=== PATIENT | male | born 1960 | race Hispanic/Latino ===

== ENCOUNTER 2016-08-24 15:41 | Inpatient (IN) | payer OTHER ==
[2016-08-24] MEDS ORDERED: MILK OF MAGNESIA PO PRN (16:48)
[2016-08-24] MEDS ORDERED: ALUM-MAG HYDROX-SIMETH 200-200-20MG/5ML PO PRN (16:48)
[2016-08-24] MEDS ORDERED: DULCOLAX PR PRN (16:48)
[2016-08-24] MEDS ORDERED: SENOKOT PO PRN (16:48)
--- NOTE | 2016-08-24 17:12 | History and Physical Report ---
History of Present Illness Date: 08/24/16 Referring Facility: [facility] Date of admission: 08/24/16 15:41 Chief Complaint: right MCA CVA History of present illness: POST ADMISSION PHYSICIAN EVALUATION ONSET DATE: 08/22/2016 IMPAIRMENT GROUP CODE: 01.2 ETIOLOGIC DIAGNOSIS: right MCA CVA STATUS CHANGES SINCE PREADMISSION SCREENING: PAS has been reviewed. In comparison, pt is with improved left side strength; continues with intermittent headache, relieved by prn tramadol. Therapies to be initiated in the morning. Pt remains an appropriate candidate for IRU admission at this time. PREVIOUS FUNCTIONAL STATUS: Independent for ADLs, gait, transfers CURRENT FUNCTIONAL STATUS: per PAS, pt requires S/U for eating and UB dressing ; Tunde for grooming, bathing, LB dressing, and toileting; Tunde for bed/chair transfers; min/modA x2 20 feet with RW HPI 56 y.o. left handed male noted to have acute onset of left sided weakness attempting to go to the bathroom at home; resulted in patient falling. Pt also with associated headache. Pt was taken to [facility] by EMS; stroke work- up initiated; tPA given in ED. Initial CT Brain was negative; however, MRI Brain positive for partial right MCA CVA. Pt has continued with intermittent headaches, functional deficits with self cares and mobility. Pt is now admitted to IRU for aggressive therapies and ongoing medical management. Past History Past Medical History: GERD, stroke, other (hemorrhoids; colon polyps) Past Surgical History: Other (polypectomy) Social history: , lives with family, smoking. denies: alcohol abuse Family history: CAD, cancer. denies: stroke Medications and Allergies Allergies Allergy/AdvReac Type Severity Reaction Status Date / Time No Known Allergies Allergy Unverified 08/24/16 16:33 Active Meds: Active Medications Acetaminophen (Tylenol) 650 mg PO Q4H PRN PRN Reason: Pain MILD(1-3)/Fever >100.5/PHILIP Al Hydrox/Mg Hydrox/Simethicone (Alum-Mag Hydrox-Simeth [id number]/5ml) 30 ml PO Q4H PRN PRN Reason: Indigestion Aspirin (Aspirin) 325 mg PO QDAY HEIDE Atorvastatin Calcium (Lipitor) 40 mg PO QHS HEIDE Bisacodyl (Dulcolax) 10 mg MO QDAY PRN PRN Reason: Constipation unrelieved by MOM Calcium Carbonate/Glycine (Tums) 500 mg PO QDAY HEIDE Enoxaparin Sodium (Lovenox) 40 mg SUB-Q QDAY HEIDE Magnesium Hydroxide (Milk Of Magnesia) 30 ml PO Q4H PRN PRN Reason: Constipation Senna (Senokot) 8.6 mg PO Q12H PRN PRN Reason: Laxative Effect Tramadol HCl (Ultram) 100 mg PO Q6H PRN PRN Reason: Pain, Moderate (4-6) Review of Systems All systems: negative Constitutional: poor appetite Ears, nose, mouth and throat: headache Cardiovascular: no chest pain Respiratory: no cough Gastrointestinal: no nausea, no vomiting, no constipation Genitourinary Male: no dysuria Neurological: balance difficulties, gait dysfunction Exam - Constitutional General appearance: no acute distress, other (family present) - EENT Eyes: EOM intact ENT: hearing intact - Neck Neck: supple, normal ROM - Respiratory Respiratory effort: normal Respiratory: bilateral: CTA - Cardiovascular Rhythm: regular Heart Sounds: Present: S1 & S2 - Extremities Extremities: No edema - Gastrointestinal General gastrointestinal: Present: soft, non-tender, non-distended, normal bowel sounds - Integumentary Integumentary: Present: clear - Neurologic Neurologic: CNII-XII intact, moves all extremities (4/5 throughout), other ( sensation grossly intact) - Psychiatric Psychiatric: appropriate mood/affect, intact judgment & insight, memory intact, cooperative Assessment and Plan Assessment and plan: 56 y.o. left handed male with partial right MCA CVA, improving left sided weakness, gait dysfunction. The patient is currently medically stable, however , requires ongoing medical management. Pt is appropriate for inpatient rehabilitation admission and is thought to be able to tolerate at least 3 hours of therapy a day, 5 days a week including 1 hour of physical therapy, 1 hour of occupational therapy, and 1 hour of speech therapy. Patient is able to understand and follow basic directions and has attainable rehab goals. Potential barriers/complications include extension/recurrent CVA, falls, DVT, PE , depression, syncope. Plan 1. Rehabilitation- Pt will undergo multidisciplinary/integrative rehab PT/OT/ ELECTRICAL ASSEMBLER, Nursing. Areas to be addressed include, but are not limited to PT for mobility, strengthening, transfer training, ROM, endurance, stairs, balance; OT for ADLs, household tasks, adaptive equipment; ELECTRICAL ASSEMBLER for cognition and swallowing evaluations; Nursing for carryover of therapies, pain control, education, skin integrity, medication management, bowel/bladder management; Nutrition as needed ; multimedia services coordinator for discharge planning and equipment needs. Potential interventions include appropriate assistive device or adaptive equipment. Expected overall level of functional improvement by discharge is Marci for ADLs, gait, transfers. Pt will tentatively be discharged home with outpatient PT. Estimated length of stay is 7-10 days. 2. s/p CVA- continue ASA, statin; continue prn tramadol for intermittent headaches 3. gait dysfunction secondary to CVA- to address in PT 4. GERD- tums daily 5. DVT px- lovenox - Patient Problems (1) Acute right MCA stroke Current Visit: Yes Status: Acute (2) Hemiparesis affecting left side as late effect of cerebrovascular accident Current Visit: Yes Status: Acute (3) Abnormality of gait following cerebrovascular accident (CVA) Current Visit: Yes Status: Acute (4) GERD (gastroesophageal reflux disease) Current Visit: Yes Status: Acute Qualifiers: Esophagitis presence: without esophagitis Qualified Code(s): K21.9 - Gastro -esophageal reflux disease without esophagitis
[2016-08-24] MEDS: ULTRAM PO PRN ×2 (17:16→23:39)
[2016-08-24] MEDS: ZOFRAN PO PRN (18:54)
[2016-08-24] MEDS: TYLENOL PO PRN (22:33)
[2016-08-25 05:12] LABS: Basophils % (Auto) 0.7 % (0.0-1.8); Eosinophils % (Auto) 0.5 % (0.0-4.3); Hematocrit 36.2 % (35.5-45.6); Hemoglobin 12.3 gm/dl (11.8-15.2); Mean Corpuscular HGB Conc 34 % (32-34); Mean Corpuscular Hemoglobin 30 pg (28-32); Mean Corpuscular Volume 88 fl (84-94); Platelet Count 224 K/mm3 (140-440); Red Cell Distribution Width 13.1 % (13.2-15.2); White Blood Count 9.1 K/mm3 (4.5-11.0)
[2016-08-25 05:30] LABS: Alanine Aminotransferase 19 units/L (7-56); Albumin 3.9 g/dL (3.9-5); Albumin/Globulin Ratio 1.3 %; Alkaline Phosphatase 52 units/L (35-129); Anion Gap 20 mmol/L; BUN/Creatinine Ratio 23.33; Blood Urea Nitrogen 14 mg/dL (9-20); Calcium 8.5 mg/dL (8.4-10.2); Carbon Dioxide 22 mmol/L (22-30); Chloride 100.2 mmol/L (98-107); Glucose 99 mg/dL (75-100); Sodium 138 mmol/L (137-145); Total Protein 6.8 g/dL (6.3-8.2)
[2016-08-25] MEDS: ULTRAM PO PRN ×3 (09:12→21:17)
[2016-08-25] MEDS: TUMS PO SCH (09:12)
[2016-08-25] MEDS: ASPIRIN PO SCH (09:12)
[2016-08-25] MEDS: LOVENOX SUB-Q SCH (09:13)
[2016-08-25] MEDS: TYLENOL PO PRN ×2 (12:39→19:59)
[2016-08-25] MEDS: ZOFRAN PO PRN (12:40)
[2016-08-26] MEDS: ULTRAM PO PRN ×2 (04:21→10:37)
[2016-08-26] MEDS: TYLENOL PO PRN ×2 (08:00→19:54)
[2016-08-26] MEDS: LOVENOX SUB-Q SCH (08:47)
[2016-08-26] MEDS: ASPIRIN PO SCH (08:48)
[2016-08-26] MEDS: TUMS PO SCH (08:48)
[2016-08-27] MEDS: ULTRAM PO PRN (04:40)
[2016-08-27] MEDS: TYLENOL PO PRN (06:56)
[2016-08-27] MEDS: TUMS PO SCH (09:24)
[2016-08-27] MEDS: LOVENOX SUB-Q SCH (09:25)
[2016-08-27] MEDS: ASPIRIN PO SCH (09:25)
--- NOTE | 2016-08-27 10:23 | IRU Plan of Care ---
Interdisciplinary Plan of Care - IP IRU INTERDISCIPLINARY PLAN: [facility] Inpatient Rehab Unit Plan of Care IRU Interdisciplinary Care Plan Start: 08/24/16 16: 31 Freq: Admission then PRN Status: Active Document 08/27/16 09:53 DB (Rec: 08/27/16 09:59 DB [id number]) Interdisciplinary Problem List Interdisciplinary Problem List Interdisciplinary Problem List Impaired Bathing/Grooming Query Text:Answers will Trigger Problems Impaired Mobility and Outcomes on Worklist. Impaired Transfers Pain Management Knowledge Deficits Impaired Home Management Impaired Safety Medications Education IRU Interdisciplinary Care Plan Therapy Services Therapy Services Will Include: Physical Therapy Query Text:Patient will be seen for a Occupational Therapy minimum of 3 hours of daily therapy 5 out of 7 days a week. Therapy intensity may be adjusted within a 7 consecutive day period to effectively serve the individual needs of the patient. Treatment Frequency/Intensity/Duration Treatment Frequency 5 days per week Treatment Intensity 1.5 hours per discipline (PT/OT ) daily Treatment Duration 7-10 days Problem Area: Eating/Swallowing Eating/Swallowing Outcomes Eating/Swallowing Interventions Problem Area: Bathing/Grooming Bathing/Grooming Outcomes Improve [place] w/ Grooming Improve [place] w/ Bathing Bathing/Grooming Interventions ADL Training Use of Assistive Devices Therapeutic Exercise Therapeutic Activity Balance Work Activity Tolerance Work Patient/Caregiver Education Problem Area: Dressing Dressing Outcomes Dressing Interventions Problem Area: Mobility Mobility Outcomes Improve [place] w/ Ambulation Improve [place] w/ Stairs /Curb Mobility Interventions Therapeutic Exercise Neuromuscular Re-Ed. Activity Tolerance Work Use of Assistive Devices Patient/Caregiver Education Gait Training Problem Area: Transfers Transfers Outcomes Improve [place] w/ Bed Transfers Improve [place] w/ Toilet Transfers Improve [place] w/ Tub/ Shower Transfers Improve [place] w/ Car Transfers Transfers Interventions Transfer Training Therapeutic Exercise Neuromuscular Re-Education Activity Tolerance Work Use of Assistive Devices Patient/Caregiver Education Problem Area: Bowel/Bladder Managment Bowel/Bladder Outcomes Bowel/Bladder Interventions Problem Area: Toileting Toileting Outcomes Toileting Interventions Problem Area: Nutrition Nutrition Outcomes Understand and Comply w/ Diet Improve/Maintain Oral Intake Improve/Maintain Fluid Intake Nutrition Interventions Monitor Nutrient Intake Patient/Caregiver Education Problem Area: Comprehension Comprehension Outcomes Comprehension Interventions Problem Area: Expression Expression Outcomes Expression Interventions Problem Area: Problem Solving Problem Solving Outcomes Problem Solving Interventions Problem Area: Memory Memory Outcomes Memory Interventions Problem Area: Pain Management Pain Management Outcomes Demonstrate/Verbalize Pain Strategies Pain Management Interventions Medication Management Positioning/Turning Patient/Caregiver Education Problem Area: Knowledge Deficits Knowledge Deficits Outcomes Verbalize Precautions Verbalize Understanding of S/S of Stroke Knowledge Deficits Interventions Disease/Injury/Sx. Intervention Education Medication Use Education Disease Management Education Health Maintainence Education Safety Education Problem Area: Skin/Tissue Integrity Skin/Tissue Integrity Outcomes Skin/Tissue Integrity Interventions Problem Area: Social Interaction Social Interaction Outcomes Social Interaction Interventions Problem Area: Adjustment to Disability Adjustment to Disability Outcomes Adjustment to Disability Interventions Problem Area: Discharge Concerns Discharge Concerns Outcomes Discharge Home w/ Necessary Equipment Have Home Health/Outpatient Services Discharge Concerns Interventions Discharge Planning Family/Caregiver Conference Family/Caregiver Training Problem Area: Community Reintegration Community Reintegration Outcomes Demonstrate Understanding of Community Resources Community Reintegration Interventions Provide Community Resources Problem Area: Home Management Home Management Outcomes Improve [place] w/ Home Management Home Management Interventions Meal Preparation Clothing Care Activity Tolerance Work Patient/Caregiver Education Problem Area: Safety Safety Outcomes Provide Safe Environment Perform Selfcare Safely Demonstrate Good Safety w/ Transfers/Mobility Safety Interventions Identify Fall Risk [place] Pt. to Environment Reduce Environmental Hazards Problem Area: Medication Education Medication Education Outcomes Patient/Caregiver will Verbalize Understanding of Medications Medication Education Interventions Explain Administration/Side Effects/Interactions Problem Area: Diabetes Education Diabetes Education Outcomes Diabetes Education Interventions Problem Area: Oxygenation Oxygenation Outcomes Oxygenation Interventions Problem Area: Cardiovascular Cardiovascular Outcomes Cardiovascular Interventions Physician Only Medical Prognosis and Rehabilitation Patient demonstrates good Potential (Completed by Physician) rehab potential. Medical Prognosis: Good This plan of care has been developed based on the findings from the pre- admission assessment, post admission physician evaluation, information gathered from the assessments from all therapy disciplines and other pertinent clinicians. The plan of care has been reviewed and discussed in collaboration with the interdisciplinary team. The plan of care will be reviewed and updated at least weekly. 56 y.o. left handed male with partial right MCA CVA, improving left sided weakness, gait dysfunction. The patient remains at risk for extension/ recurrent CVA, falls, DVT, PE, depression, syncope. Pt with some intermittent nausea and vomiting; now resolved. Also with intermittent headaches; will add fioricet. Pt is progressing well and will likely discharge in next 1-2 days.
--- NOTE | 2016-08-27 14:21 | Progress Note ---
Assessment and Plan 56 y.o. left handed male with partial right MCA CVA, improving left sided weakness, gait dysfunction - s/p CVA- ASA, statin; trial of fioricet for intermittent headaches - gait dysfunction secondary to CVA- much improved gait with PT; progress towards gait without an assistive device - GERD- tums daily - DVT px- lovenox - Patient Problems (1) Acute right MCA stroke Current Visit: Yes Status: Acute (2) Hemiparesis affecting left side as late effect of cerebrovascular accident Current Visit: Yes Status: Acute (3) Abnormality of gait following cerebrovascular accident (CVA) Current Visit: Yes Status: Acute (4) GERD (gastroesophageal reflux disease) Current Visit: Yes Status: Acute Qualifiers: Esophagitis presence: without esophagitis Qualified Code(s): K21.9 - Gastro -esophageal reflux disease without esophagitis Subjective Date of service: 08/27/16 Principal diagnosis: partial right MCA CVA Interval history: Pt seen in OT gym this AM; F/U IPR course, partial right MCA CVA. Pt reports intermittent right frontal headache; 5/10 this AM, down to 3/10 after being medicated Objective - Constitutional Vitals: Vital Signs - 12hr 08/27/16 08/27/16 08:00 10:00 Temperature 98.3 F Pulse Rate [ 55 L 55 L Right Brachial] Respiratory 20 Rate Blood Pressure 140/88 [Right Arm] O2 Sat by Pulse 96 96 Oximetry General appearance: Present: no acute distress - EENT Eyes: EOM intact ENT: hearing intact - Neck Neck: supple, normal ROM - Respiratory Respiratory effort: normal Respiratory: bilateral: CTA - Cardiovascular Rhythm: regular Heart Sounds: Present: S1 & S2 Extremities: No edema - Gastrointestinal General gastrointestinal: Present: soft, non-tender, non-distended, normal bowel sounds - Integumentary Integumentary: clear - Neurologic Neurologic: CNII-XII intact, moves all extremities, no gait normal (observed ambulating in OT session; no LOB noted) - Psychiatric Psychiatric: appropriate mood/affect, intact judgment & insight, memory intact, cooperative - Allied health notes Allied health notes reviewed: PT (supervision/CGA for gait and transfers) - Labs CBC & Chem 7: 08/25/16 04:34 08/25/16 04:34
[2016-08-27] MEDS: FIORICET PO PRN (20:22)
[2016-08-28] MEDS: FIORICET PO PRN (07:02)
[2016-08-28] MEDS: TUMS PO SCH (08:27)
[2016-08-28] MEDS: LOVENOX SUB-Q SCH (08:27)
[2016-08-28] MEDS: ASPIRIN PO SCH (08:27)
[2016-08-28 09:13] VITALS: BP 102/78
--- NOTE | 2016-08-28 14:54 | Discharge Summary ---
Providers - Providers Date of Admission: 08/24/16 15:41 Date of discharge: 08/28/16 Attending physician: STEVE LORENZO 08/24/16 16:48 Occupational Therapy Evaluate and Treat [CONS] Routine Comment: Reason For Exam: s/p CVA Physical Therapy Evaluation and Treat [CONS] Routine Comment: Reason For Exam: s/p CVA Speech Therapy Evaluation and Treat [CONS] Routine Reason For Exam: s/p CVA; swallowing and cognitive screening Primary care physician: JAVI ERAZO Hospitalization Reason for admission: partial right MCA CVA Condition: Stable Hospital course: 56 y.o. left handed male noted to have acute onset of left sided weakness attempting to go to the bathroom at home, which resulted in patient falling. Pt also with associated headache at time of event. Pt was taken to [facility] by EMS; stroke work-up initiated; tPA given in ED. Initial CT Brain was negative; however, MRI Brain positive for partial right MCA CVA. Pt continued with intermittent headaches, functional deficits with self cares and mobility; therefore was admitted to IRU for aggressive therapies and ongoing medical management. Pt continued with intermittent headaches during course, now improved with use of fioricet; intermittent nausea and vomiting on admission , now resolved. Pt continues to improve functionally. On admission, pt required SBA/Supervision for bed mobility; ambulated 50 feet min/CGA with RW; Marci for eating, dressing, toileting; S/U for grooming and bathing. Pt is now independent for eating, UB dressing, bed/chair transfers, bed mobility; Marci for grooming, bathing; toilet transfers and shower transfers. Pt is ambulating >300 feet without an assistive device at supervision, however feels more comfortable with straight cane; supervision for stairs, curbs, ramp. Pt is stable for d/c home. >30 mins spent on discharge process; medication reconciliation; education on F/ U appt and clearance by PCP/Neurology prior to returning to work or flying; team conference was held on today prior to d/c Disposition: DISCHARGED TO HOME OR SELFCARE - Discharge Diagnoses (1) Acute right MCA stroke Status: Acute (2) Hemiparesis affecting left side as late effect of cerebrovascular accident Status: Acute (3) Abnormality of gait following cerebrovascular accident (CVA) Status: Acute (4) GERD (gastroesophageal reflux disease) Status: Acute Qualifiers: Esophagitis presence: without esophagitis Qualified Code(s): K21.9 - Gastro -esophageal reflux disease without esophagitis Core Measure Documentation - Palliative Care Palliative Care/ Comfort Measures: Not Applicable - Core Measures Any of the following diagnoses?: stroke - Stroke Discharge Requirements Statin for LDL = or >70 mg/dl on DC: Yes Anticoag for atrial fib/atrial flutter: Not Applicable Antithrombotic for ischemic stroke: Yes Exam - Constitutional Vitals: Temp Pulse Resp BP Pulse Ox 98.4 F 81 20 102/78 95 08/28/16 08:00 08/28/16 08:00 08/28/16 08:00 08/28/16 08:00 08/28/16 08:00 General appearance: Present: no acute distress - EENT Eyes: Present: EOM intact ENT: hearing intact - Neck Neck: Present: supple, normal ROM - Respiratory Respiratory effort: normal - Extremities Extremities: No edema - Abdominal General gastrointestinal: Present: non-distended - Integumentary Integumentary: Present: clear - Psychiatric Psychiatric: appropriate mood/affect, intact judgment & insight, memory intact, cooperative - Neurologic Neurologic: CNII-XII intact, moves all extremities Plan Activity: no driving until cleared by PCP, fall precautions Weight Bearing Status: Full Weight Bearing Diet: low cholesterol, low salt Special Instructions: physical therapy ([facility] in [place]) Durable Medical Equipment Needed Upon Discharge: Cane (BATS) Additional Instructions: Neurology, Dr. Chao, in 1-2 weeks Follow up with: JAVI ERAZO MD [Primary Care Provider] - 7 Days Prescriptions: Aspirin [Aspirin TAB] 325 mg PO ONCE #30 tablet AtorvaSTATin [Lipitor] 40 mg PO HS #30 tablet Butalb/Acetamin/Caff 50-325-40 [Fioricet] 1 tab PO Q4H PRN #30 tablet PRN Reason: Headache
== END 2016-08-28 16:45 | disposition home or self-care (01) | DRG 65 ==
LOC: 3B 15:41
PROVIDERS: ADMIT Family Medicine; ATTEND Family Medicine
DX: I63.9 Cerebral infarction, unspecified (principal); G81.94 Hemiplegia, unspecified affecting left nondominant side; F17.200 Nicotine dependence, unspecified, uncomplicated; K21.9 Gastro-esophageal reflux disease without esophagitis; R26.9 Unspecified abnormalities of gait and mobility; Z82.49 Family history of ischemic heart disease and other diseases of the circulatory system; Z80.9 Family history of malignant neoplasm, unspecified; Z86.73 Personal history of transient ischemic attack (TIA), and cerebral infarction without residual deficits
CPT/HCPCS: 36415; 80053; 85025; A9270-GY; J1650; Q0162